=== PATIENT | male | born 1955 | race Caucasian/White ===

== ENCOUNTER 2019-08-01 10:24 | Inpatient (IN) ==
--- NOTE | 2019-07-31 10:59 | Anesthesiology Consultation ---
Date of Service July 31, 2019 Assessment & Plan (1) Encounter for pre-operative examination: Chart Review Chart Review: Acceptable Risk for Surgery and Patient NOT seen in Pre Admission Testing Consults Requested none Additional Notes Patient tolerated closed reduction on 07/27/2019 with LMA #5 and without apparent complications. History Surgery Operation Date: 08/01/19 12:50 Proposed Procedures p Right Total Hip Revision - Gómez Verma MD Height/Weight Height: 5 ft 8 in Weight: 99.79 kg Allergies Allergy/AdvReac Type Severity Reaction Status Date / Time lisinopril Allergy Intermediate edema Unverified 07/30/19 14:02 face, lips tongue poison ambreen extract Allergy Intermediate Rash Verified 07/30/19 14:02 poison oak extract Allergy Intermediate Rash Verified 07/30/19 14:02 [id number]-Pks Reductase Allergy Intermediate SWELLING Verified 07/30/19 14:02 Inhibitor LIPS AND FACE. OK TO TAKE LIPITOR - ON IT AT HOME bee venom protein (honey bee) Allergy Mild MAJOR Verified 07/30/19 14:02 SWELLING AROUND FACE Medications Home Medications Medication Instructions Recorded Confirmed Last Taken aspirin [Aspir-Low] 81 mg PO QAM 12/11/18 07/30/19 Unknown atorvastatin 40 mg PO QAM 12/11/18 07/30/19 Unknown diclofenac sodium 50 mg PO QAM 12/11/18 07/30/19 Unknown losartan 50 mg PO QAM 12/11/18 07/30/19 Unknown metoprolol succinate 50 mg PO QAM 12/11/18 07/30/19 Unknown cholecalciferol (vitamin D3) 1,000 unit PO DAILY 07/27/19 07/30/19 Unknown [Vitamin D3] magnesium oxide 4,000 mg PO DAILY 07/27/19 07/30/19 Unknown oxycodone 5 mg PO Q8H PRN #20 tab 07/27/19 07/30/19 Unknown Past Medical History Medical History CAD (coronary artery disease) cath 2014 showed small vessel occluded and covered by collateral flow, otherwise mild nonobstructive disease Hyperlipidemia Hypertension Polymyalgia rheumatica Sleep apnea NO DEVICE Past Surgical History Surgical History Dislocated hip RIGHT ATTEMPT IN ER AND HAD TO GO TO SURGERY History of carpal tunnel release LEFT History of hip replacement RIGHT History of lumbar fusion History of total right knee replacement Hx of ankle fusion RIGHT Hx of colonoscopy Hx of umbilical hernia repair Social History Smoking Status: Never smoker Do You Dip or Chew Tobacco: No Hx Alcohol Use: Yes Alcohol type: beer alcohol intake frequency: 0-2 drinks per day Hx Substance Use: No substance use type: does not use Testing Other Testing Electrocardiogram Date: 12/11/18 Findings: + NSR @ (88)
[~2019-08-01 10:24] MED LIST: ACETAMINOPHEN 500 MG TAB PO SCH; BUPIVACAINE 0.5 % 5 MG/1 ML PF 10ML VIAL ONE; CEFAZOLIN 2000MG 2,000 MG/15 ML SYR IV SCH; FAMOTIDINE 20 MG TAB PO SCH; GABAPENTIN 300 MG CAP PO SCH; LR 15ML/HR IV SCH; LR 60ML/HR IV SCH; METOCLOPRAMIDE HCL 10 MG TABLET PO SCH; SCOPOLAMINE 1.5 MG TDSY TD SCH
--- NOTE | 2019-08-01 11:18 | History & Physical Bridge Note ---
Date of Service August 01, 2019 History & Physical Bridge Note I have examined the patient, reviewed the History & Physical and in the interval since the performance of the History & Physical I have noted the following changes of clinical significance: no changes noted
[2019-08-01] MEDS ORDERED: MIDAZOLAM HCL 1 MG/ML 2ML VIAL ONE ×2 (12:44→13:29)
[2019-08-01] MEDS ORDERED: EPINEPHrine INJ 1 MG/ML AMP ONE (13:15)
[2019-08-01] MEDS ORDERED: BUPIVACAINE 0.5 % 5 MG/1 ML MPF 30ML VIAL ONE (13:15)
[2019-08-01] MEDS ORDERED: BACITRACIN INJ 50,000 UNIT VIAL ONE (13:15)
[2019-08-01] MEDS ORDERED: MoRPHine SULFATE PF 1 MG/ML 10 ML AMP/VIAL ONE (13:18)
[2019-08-01] MEDS ORDERED: fentaNYL citrate 100 MCG/2 ML VIAL ONE (13:29)
[2019-08-01] MEDS ORDERED: METOCLOPRAMIDE HCL 20 MG in SODIUM CHLORIDE 0.9% 50 ML IV PRN (13:55)
[2019-08-01] MEDS ORDERED: MoRPHine SULFATE PF 1 MG/ML 10 ML AMP/VIAL INT SPINAL ONE (13:55)
[2019-08-01] MEDS ORDERED: ONDANSETRON INJ 2 MG/ML 2 ML VIAL IV PRN (13:55)
[2019-08-01] MEDS ORDERED: HYDROmorphone INJ 0.5 MG/0.5 ML SYR IV PRN (13:55)
[2019-08-01] MEDS ORDERED: PROMETHAZINE HCL 25 MG in SODIUM CHLORIDE 0.9% 50 ML IV PRN (13:55)
[2019-08-01] MEDS ORDERED: NALOXONE HCL 0.08 MG in SYRINGE 1.8 ML IV PRN (13:55)
[2019-08-01] MEDS ORDERED: NALOXONE HCL 1 MG in SODIUM CHLORIDE 0.9% 1000ML 1,000 ML IV PRN (13:55)
[2019-08-01] MEDS ORDERED: MEPERIDINE HCL 25 MG/ML CARP IV PRN (13:55)
[2019-08-01] MEDS ORDERED: LACTATED RINGER'S 500 ML IV PRN (13:55)
[2019-08-01] MEDS ORDERED: ePHEDrine sulfate 50 MG/ML AMP IV PRN (13:55)
[2019-08-01] MEDS ORDERED: NALOXONE HCL 0.4 MG/1 ML VIAL/CARP IV PRN ×2 (13:55→17:34)
[2019-08-01] MEDS ORDERED: DiphenhydrAMINE HCL 50 MG/ML VIAL IV PRN (13:55)
[2019-08-01] MEDS ORDERED: KETOROLAC 30 MG/ML VIAL IV PRN (13:55)
[2019-08-01] MEDS ORDERED: NALBUPHINE HCL INJ 10 MG/ML AMP IV PRN (13:55)
[2019-08-01] MEDS ORDERED: MoRPHine SULFATE 2 MG/ML CARP IV PRN (13:55)
[2019-08-01] MEDS ORDERED: ePHEDrine sulfate 50 MG/ML SYR ONE (13:58)
[2019-08-01] MEDS ORDERED: PROPOFOL IV EMULSION 10 MG/ML 20 ML VIAL IV ONE ×3 (13:58→15:27)
[2019-08-01] MEDS ORDERED: LIDOCAINE HCL 2% 2 ML VIAL/AMP(20MG/ML) INFIL ONE (13:58)
[2019-08-01] MEDS ORDERED: NO NARCOTICS OR SEDATIVES SCH (14:00)
[2019-08-01] MEDS ORDERED: SODIUM CHLORIDE 0.9% 1000ML 1,000 ML IV SCH (14:00)
[2019-08-01] MEDS ORDERED: TRANEXAMIC ACID / 0.7% NACL 1,000 MG/100 ML BAG IV STA (14:07)
--- NOTE | 2019-08-01 16:16 | Post Operative Brief Note ---
PG Immediate Post Op with CF Date of Surgery August 01, 2019 Pre & Post Diagnosis Operation Date: 08/01/19 12:50 Pre-Op Diagnosis: Right Hip Total Hip Disclocation Reoccurence Post-Op Diagnosis: Right Hip Total Hip Disclocation Reoccurence I identified the patient and participated in the time-out.: Yes Procedure Operation Date: 08/01/19 12:50 Actual Procedures p Right Total Hip Revision(Right) - Gómez Verma MD Surgeon Gómez Verma MD Test Lab Technician SANDRA Auguste; SANDRA Agustin Estimated Blood Loss 200 Findings Consistent with Post-Op Diagnosis Fluids 1500 cc Specimens Specimen Description: none per surgeon Drains Caputo Catheter (inserted by PA-C) Anesthesia Type Spinal MAC Complications none Disposition Accompanied Patient To Recovery: Yes Disposition: Recovery Room
--- NOTE | 2019-08-01 16:44 | XRay Report ---
XR hip 1V RT w pelvis CLINICAL HISTORY: IN PACU - A/P PELVIS and LATERAL HIP COMPARISON: None. DISCUSSION: Anatomic alignment post total right hip reduction. The dislocation previously described i s not appreciated currently. Alignment is anatomic. No evidence for acetabular protrusion. Stable postoperative changes low lumbar spine. There is no evidence for soft tissue swelling. IMPRESSION: Anatomic alignment post right hip reduction. Alignment is now anatomic. ACT 112: Negative or not required by law. The above report was generated using voice recognition software. It may contain grammatical, syntax or spelling errors. Electronically signed by: Gerald Cruz M.D. 08/01/2019 4:42 PM
[2019-08-01] MEDS: SODIUM CHLORIDE 0.9% 1000ML 1,000 ML IV SCH (17:15)
--- NOTE | 2019-08-01 17:29 | Anesthesiology Progress Note ---
Date of Service August 01, 2019 Anesthesia Post Procedure Vital Signs Vital Signs: Temp Pulse Pulse Resp BP BP Pulse Ox 08/01/19 17:00 64 17 140/86 98 08/01/19 16:45 36.4 C L 70 22 135/77 98 08/01/19 16:35 75 15 145/89 H 98 08/01/19 16:25 80 27 H 123/85 96 08/01/19 16:17 36.5 C 72 16 142/81 H 100 08/01/19 11:09 36.8 C 67 18 163/90 H 95 Transfer of Care Handoff Completed per policy Notes Mental Status: alert / awake / arousable and participated in evaluation Patient Amnestic to Procedure: Yes Nausea / Vomiting: adequately controlled Pain: adequately controlled Airway Patency, RR, SpO2: stable & adequate BP & HR: stable & adequate Hydration State: stable & adequate Neuraxial Anesthesia: was administered and sensory block is resolving Anesthetic Complications: no major complications apparent
[2019-08-01] MEDS ORDERED: bisacodyL 10 MG SUPP PR PRN (17:34)
[2019-08-01] MEDS ORDERED: MAGNESIUM HYDROXIDE SUSP 30 ML UDC PO PRN (17:34)
[2019-08-01] MEDS ORDERED: TAMSULOSIN HCL 0.4 MG CAP PO PRN (17:34)
[2019-08-01] MEDS: CHECK SCOPOLAMINE PATCH PLACEMENT SCH (17:46)
--- NOTE | 2019-08-01 18:37 | Operative Report ---
Post Operative Report Pre & Post Diagnosis Operation Date: 08/01/19 12:50 Pre-Op Diagnosis: Right Hip Total Hip Disclocation Reoccurence Post-Op Diagnosis: Right Hip Total Hip Disclocation Reoccurence I identified the patient and participated in the time-out.: Yes Procedure Operation Date: 08/01/19 12:50 Actual Procedures p Right Total Hip Revision(Right) - Femoral Head revision and acetabular revision with a dual mobilitiy liner- Gómez Verma MD Surgeon Gómez Verma MD Cane Packer SANDRA Auguste; SANDRA Agustin Estimated Blood Loss 200 Findings Consistent with Post-Op Diagnosis Operative findings revealed a bloody hip joint effusion. He had rupture of the posterior capsular repair sutures. The cup clinically appeared to be about 10 degrees of anteversion. There is no damage to the hardware. All components were very well fixed. Fluids 1500 cc Specimens Implants sent for gross evaluation. There is no signs of structural problems. Drains None. Anesthesia Type Spinal MAC Complications none Disposition Accompanied Patient To Recovery: Yes Disposition: Recovery Room Indications Patient is a 64-year-old very active gentleman who is now 4-1/2 years out from right total hip replacement. He is also had multiple back surgeries and pretty extensive back fusion. He did quite well until just about 6 months ago when he had his first dislocation episode. He has had several episodes where he felt like his hip was giving out but no dislocations and then had another dislocation last week. On x-ray exam the acetabular component look to be only slightly anteverted. Considering his recurrent episodes in his lifestyle I thought for sure he was going to have recurrent instability and dislocation events and I felt strongly that he should proceed with revision surgery a. We elected to optimize his situation by replacing the cup and placing it more anteversion as well as going with a dual mobility liner. Description of Procedure Operative implants consisted of: 1. Biomet G7 osteo-tied multi hole size 62 mm revision acetabular cup. 2. 6.5 cancellus acetabular screws 1 of 20 mm length, 1 of 20 mm length, 1 of 25 mm length, and 1 of 35 mm in length. 3. Biomet G7 dual mobility liner with a 50 mm outer diameter and 28 mm inner diameter. 4. Biomet G7 dual mobility metal liner with a 62 mm outer diameter and a 50 mm inner diameter. 5. Lili size 8.5/28 mm metal articular ball. Patient was taken to the operating room identified and placed in the operating table supine position protectors were properly padded. IV antibiotics provided by anesthesia team. A spinal anesthetic is been implemented holding area. Caputo catheter was placed in sterile fashion with patient then placed in the left lateral cubitus position. Axillary roll was placed. Stulberg hip positioner was used for positioning. The right hip and leg were then prepped and draped in usual sterile fashion. A posterior lateral approach to the right hip was then performed through a curvilinear incision using the previous incision. Sharp passes Through subcutaneous tissue down below the IT band gluteal fascia the IT band gluteal fascia incised longitudinally in line with skin incision. There was a small serosanguineous effusion from the previous dislocation episode. The posterior capsule repair was completely disrupted. I then skeletonized the posterior aspect of the femur taking great care to protect the sciatic nerve at all times. I did try and retain some of the posterior tissue to provide some posterior stability and capsular repair. I then defined the edges of the posterior aspect of the hip/acetabular liner. I then dislocated the hip and remove the femoral head. The femur was retracted anteriorly. I then defined the anterior and inferior aspects of the acetabular shell and liner. I then used a Lili p olyethylene removal to remove the polyethylene without incident. I then remove the apex hole screw and remove the 2 additional fixation screws without incident. I then used the Convene EZ out device to remove the cup and the technically described a fashion. This remove the couple with very little bone loss. The bed was extremely good quality with extensively complete cancellus boundaries. There was some slight posterior wall deficiency but certainly enough to secure a implant. We irrigated the wound extensively. I then reamed beginning with size 56 and then reamed up to a 61. A 62mm Biomet G7 osteo-tied S multihole acetabular shell was impacted in about the 30 to 35 degrees of anteversion and 40 degrees lateral opening. I did try and placed this in a little extra anteversion due to his instability. This was then fixed with a four 6.5 cancellus acetabular screws. A trial liner was placed. I then trialed the hip and I elected to place the +8.5 articular ball in order to equalize leg lengths. The a trial implants were then removed. A permanent metal liner was placed. A +8.5/20 mm metal articular ball was placed with the dual mobility liner over top and the hip was located. Hip was quite stable. It was stable to full extension and external rotation and flexion to 90 degrees and internal rotation over 50 degrees. I elected to we then proceeded with closure. The wound was irrigated with copious amounts of pulsatile lavage solution. We remaining posterior capsule was then repaired through drill holes in the posterior trochanter with #2 Tycron suture. The IT band gluteal fascia then closed in 1 PDS suture running fashion. Subcutaneous tissue was then closed with 2 layers the deep layer #1 Vicryl suture and subcutaneous tissues with 2 Dexon suture in a buried interrupted fashion his skin was closed skin sergio. Leg was then cleaned dried a sterile dressing of Xeroform, 4 x 4's, sterile ABD pad and foam tape was applied. Patient transferred to the recovery room in stable condition. Patient tolerated procedure well no complications I attest to the content of the Intraoperative Record and any orders documented therein. Any exceptions are noted below.
[2019-08-01] MEDS: ASCORBIC ACID 500 MG TAB PO SCH (18:51)
[2019-08-01] MEDS: KETOROLAC TROMETHAMINE 15 MG/ML VIAL IV SCH (18:51)
[2019-08-01] MEDS: FERROUS GLUCONATE 324 MG TAB PO SCH (18:51)
[2019-08-01] MEDS ORDERED: SENNA 8.6 MG TAB PO SCH (21:00)
[2019-08-01] MEDS: ACETAMINOPHEN 500 MG TAB PO SCH (21:15)
[2019-08-01] MEDS: ASPIRIN 81 MG ECTAB PO SCH (21:15)
[2019-08-01] MEDS: DOCUSATE SODIUM 100 MG CAP PO SCH (21:15)
[2019-08-01] MEDS: CEFAZOLIN 2000MG 2,000 MG/15 ML SYR IV SCH (21:20)
[2019-08-02] MEDS: CHECK SCOPOLAMINE PATCH PLACEMENT SCH (00:24)
[2019-08-02] MEDS: KETOROLAC TROMETHAMINE 15 MG/ML VIAL IV SCH ×3 (00:25→12:18)
[2019-08-02] MEDS: SODIUM CHLORIDE 0.9% 1000ML 1,000 ML IV SCH (03:34)
[2019-08-02 05:09] LABS: Basophils # (auto) 0.01 K/uL (0-0.2); Basophils % (auto) 0.1 %; Eosinophils # (auto) 0.26 K/uL (0-0.5); Eosinophils % (auto) 2.8 %; Hematocrit (blood only) 32.2 % (42-52); Immature Granulocytes # (auto) 0.02 K/uL (0.00-0.02); Immature Granulocytes % (auto) 0.2 %; Lymphocytes # (auto) 1.24 K/uL (1.2-3.4); Lymphocytes % (auto) 13.6 %; Mean Corpuscular Hemoglobin 31.9 pg (25-34); Mean Corpuscular Hgb Conc 34.2 g/dL (32-36); Mean Corpuscular Volume 93.3 fL (80-100); Mean Platelet Volume 9.1 fL (7.4-10.4); Neutrophils % (auto) 71.3 %; Platelet Count 196 K/uL (130-400); RDW Coefficient of Variation 12.6 % (11.5-14.5); RDW Standard Deviation 42.6 fL (36.4-46.3); Red Blood Count 3.45 M/uL (4.7-6.1); White Blood Count 9.13 K/uL (4.8-10.8)
[2019-08-02 05:46] LABS: BUN Creatinine Ratio 15.7 (10-20); Calcium 7.9 mg/dl (8.5-10.1); Creatinine Clr Calc Pharmacy 69.1 ml/min; Est GFR (African American) 71.7; Est GFR (Non-African American) 61.8; Potassium 4.2 mmol/L (3.5-5.1)
[2019-08-02] MEDS: ACETAMINOPHEN 500 MG TAB PO SCH (06:08)
[2019-08-02] MEDS: CEFAZOLIN 2000MG 2,000 MG/15 ML SYR IV SCH (06:30)
--- NOTE | 2019-08-02 07:18 | Anesthesiology Progress Note ---
Date of Service August 02, 2019 Anesthesia Post Procedure Vital Signs Vital Signs: Temp Pulse Pulse Pulse Resp BP BP 08/02/19 07:15 37.5 C 67 18 120/74 08/02/19 06:15 16 08/02/19 05:15 16 08/02/19 04:15 16 08/02/19 03:51 37.5 C 70 20 115/67 08/02/19 03:15 16 08/02/19 02:15 16 08/02/19 01:15 20 08/02/19 00:15 70 18 08/01/19 23:15 16 08/01/19 22:58 37.3 C 69 16 133/83 08/01/19 22:15 15 08/01/19 21:13 15 08/01/19 20:19 36.7 C 72 15 170/99 H 08/01/19 19:15 36.6 C 64 14 171/99 H 08/01/19 18:15 36.6 C 68 15 175/96 H 08/01/19 17:50 36.5 C 65 16 152/89 H 08/01/19 17:15 36.3 C L 68 16 138/84 08/01/19 17:00 64 17 140/86 08/01/19 16:45 36.4 C L 70 22 135/77 08/01/19 16:35 75 15 145/89 H 08/01/19 16:25 80 27 H 123/85 08/01/19 16:17 36.5 C 72 16 142/81 H 08/01/19 11:09 36.8 C 67 18 163/90 H Pulse Ox 08/02/19 07:15 95 08/02/19 06:15 93 08/02/19 05:15 93 08/02/19 04:15 92 08/02/19 03:51 95 08/02/19 03:15 93 08/02/19 02:15 93 08/02/19 01:15 92 08/02/19 00:15 96 08/01/19 23:15 93 08/01/19 22:58 95 08/01/19 22:15 94 08/01/19 21:13 94 08/01/19 20:19 93 08/01/19 19:15 94 08/01/19 18:15 98 01/15/20 17:50 94 08/01/19 17:15 93 08/01/19 17:00 98 08/01/19 16:45 98 08/01/19 16:35 98 08/01/19 16:25 96 08/01/19 16:17 100 08/01/19 11:09 95 Notes Mental Status: alert / awake / arousable and participated in evaluation Nausea / Vomiting: adequately controlled Pain: adequately controlled Airway Patency, RR, SpO2: stable & adequate BP & HR: stable & adequate Hydration State: stable & adequate Neuraxial Anesthesia: sensory block resolved Anesthetic Complications: Pt Satisfied with anesthetic care
--- NOTE | 2019-08-02 07:50 | Progress Note ---
DATE: 08/02/2019 SUBJECTIVE: A 64-year-old gentleman postop day 1 from a right total hip revision done for recurrent dislocation. He is doing well this morning. Denies any pain. He wants to go home. No chest pain or shortness of breath. Not feeling dizzy or lightheaded. OBJECTIVE: VITAL SIGNS: Temperature 37.5. Vital signs stable. GENERAL: Shows a pleasant, middle-aged male. He is lying in bed, looks comfortable. LUNGS: Clear to auscultation. HEART: Regular rate and rhythm. ABDOMEN: Soft, nontender, nondistended. EXTREMITIES: Grossly neurovascularly intact except as follows: Examination of the right hip and leg reveals the leg lengths to be equal. Dressing is clean, dry and intact. Thigh is soft and supple. He is neurologically intact. He dorsiflexes and plantar flex his foot appropriately. LABORATORY DATA: Hemoglobin 11.0. Hematocrit 32.2. Electrolytes are stable. ASSESSMENT: A 64-year-old gentleman postop day 2 from a right hip revision with acetabular revision and conversion to a dual mobility liner. He is doing well. Pain is controlled. Hip is located. He is neurologically intact. PLAN: 1. DVT prophylaxis including thigh-high TEDs, SCDs, and aspirin twice a day. 2. PT/OT. Weight bear as tolerated. Right total hip protocol. 3. Pain control, doing well with current pain regimen. 4. Disposition: Plan to discharge to home likely with some home health once adequately recovered. We will see how therapy goes today.
[2019-08-02] MEDS ORDERED: HYDROmorphone INJ 0.5 MG/0.5 ML SYR IV PRN (07:55)
[2019-08-02] MEDS ORDERED: ONDANSETRON INJ 2 MG/ML 2 ML VIAL IV PRN (07:55)
[2019-08-02] MEDS ORDERED: DC INTRASPINAL MORPHINE ONE (07:55)
[2019-08-02] MEDS ORDERED: METOCLOPRAMIDE HCL INJ 5 MG/ML 2 ML VIAL IV PRN (07:55)
[2019-08-02] MEDS ORDERED: OXYCODONE HCL IR 5 MG TAB (IMMEDIATE RELEASE) PO PRN (07:55)
[2019-08-02] MEDS: ASCORBIC ACID 500 MG TAB PO SCH (08:52)
[2019-08-02] MEDS: DOCUSATE SODIUM 100 MG CAP PO SCH (08:53)
[2019-08-02] MEDS: FERROUS GLUCONATE 324 MG TAB PO SCH (08:54)
[2019-08-02] MEDS ORDERED: METOPROLOL SUCC 50MG EXT REL TAB PO SCH (09:00)
[2019-08-02] MEDS ORDERED: MAGNESIUM OXIDE 400 MG TAB PO SCH (09:00)
[2019-08-02] MEDS ORDERED: LOSARTAN POTASSIUM 50 MG TAB PO SCH (09:00)
[2019-08-02] MEDS ORDERED: CHOLECALCIFEROL 1,000 UNITS TAB PO SCH (09:00)
[2019-08-02] MEDS ORDERED: MULTIVITAMIN TAB PO SCH (09:00)
[2019-08-02] MEDS ORDERED: ATORVASTATIN 40 MG TAB PO SCH (09:00)
[2019-08-02] MEDS: ASPIRIN 81 MG ECTAB PO SCH (09:19)
--- NOTE | 2019-08-06 15:44 | Discharge Summary ---
ADMITTING PHYSICIAN AND SURGEON: Dr. Gómez Verma. ADMITTING DIAGNOSIS: Right total hip recurrent dislocations. SURGERY PERFORMED: Right total hip revision with femoral head revision and acetabular revision. SECONDARY DIAGNOSES: Polymyalgia rheumatica, fibromyalgia, chronic pain syndrome, back surgeries x2, hypertension, elevated cholesterol, coronary artery disease, mild obesity, chronic back pain. CONSULTS: None obtained. HISTORY AND PHYSICAL EXAMINATION: Well documented in the patient's chart. HOSPITAL COURSE: The patient was admitted on 08/01/2019 underwent revision total hip arthroplasty, tolerated the procedure well. There were no complications. He was transferred to the PACU postoperatively and later to the orthopedic floor for further care. He was given Ancef for antibiotic prophylaxis, ROHAN stockings, SCDs and aspirin for DVT prophylaxis. Hemoglobin, hematocrit and vital signs were monitored during his hospital stay and remained stable, did not require any blood transfusions. There were no complications. By postoperative day 1, he was tolerating a regular diet, pain was controlled with oral pain medicine. He was participating in physical therapy. Postop day 1, he was discharged home. He was given printed discharge instructions as well as new prescriptions for extra strength Tylenol, aspirin and oxycodone. Continue his home medicines. Continue physical therapy, weightbearing as tolerated, ROHAN stockings, total hip precautions. Follow up approximately 2 weeks postoperatively or sooner if there are any problems or concerns.
== END 2019-08-02 12:46 | disposition home or self-care (01) | DRG 468 ==
LOC: ASU 10:24 → 3E 16:32